=== PATIENT | male | born 1975 | race African-American/Black ===

== ENCOUNTER 2016-08-05 09:11 | Emergency (ER) | payer SELFPAY | END 2016-08-05 11:17 | disposition home or self-care (01) | LOC: D.ER 09:11 | DX: J45.901 Unspecified asthma with (acute) exacerbation (principal); F17.200 Nicotine dependence, unspecified, uncomplicated ==

== ENCOUNTER 2016-09-27 08:54 | Emergency (ER) | payer SELFPAY | END 2016-09-27 11:25 | disposition home or self-care (01) | LOC: D.ER 08:54 | DX: J45.901 Unspecified asthma with (acute) exacerbation (principal); F17.200 Nicotine dependence, unspecified, uncomplicated ==

== ENCOUNTER 2016-11-11 07:19 | Emergency (ER) | payer SELFPAY | END 2016-11-11 09:50 | disposition home or self-care (01) | LOC: D.ER 07:19 | DX: J45.901 Unspecified asthma with (acute) exacerbation (principal); F17.200 Nicotine dependence, unspecified, uncomplicated ==

== ENCOUNTER 2017-01-29 13:03 | Emergency (ER) | payer OTHER | END 2017-01-29 14:00 | disposition home or self-care (01) | LOC: D.ER 13:03 | DX: J45.909 Unspecified asthma, uncomplicated (principal); F17.200 Nicotine dependence, unspecified, uncomplicated ==

== ENCOUNTER 2017-02-20 11:21 | Emergency (ER) | payer OTHER | END 2017-02-20 15:37 | disposition home or self-care (01) | LOC: D.ER 11:21 | DX: M25.562 Pain in left knee (principal); F17.200 Nicotine dependence, unspecified, uncomplicated ==

== ENCOUNTER 2017-06-04 14:15 | Emergency (ER) | payer SELFPAY | END 2017-06-04 15:36 | disposition home or self-care (01) | LOC: D.ER 14:15 | DX: J45.909 Unspecified asthma, uncomplicated (principal); J06.9 Acute upper respiratory infection, unspecified; F17.200 Nicotine dependence, unspecified, uncomplicated ==

== ENCOUNTER 2017-10-29 09:28 | Emergency (ER) | payer SELFPAY ==
[~2017-10-29] VITALS: Ht 175.3 cm; Wt 110.9 kg
[2017-10-29 09:32] VITALS: Ht 175.3 cm; Wt 110.9 kg
[2017-10-29] MEDS ORDERED: VENTOLIN HFA18 GM INH (09:35)
[2017-10-29] MEDS ORDERED: ALBUTEROL0.63 MG/3 INH (09:36)
[2017-10-29] MEDS ORDERED: PROAIR HFA8.5 GM INH (10:58)
[2017-10-29] MEDS ORDERED: ALBUTEROL1.25 MG/3 INH (10:58)
[2017-10-29 11:07] VITALS: BP 128/074
== END 2017-10-29 11:09 | disposition home or self-care (01) ==
LOC: D.ER 09:28
DX: Z76.0 Encounter for issue of repeat prescription (principal); J45.901 Unspecified asthma with (acute) exacerbation; F17.200 Nicotine dependence, unspecified, uncomplicated

== ENCOUNTER 2018-01-28 10:21 | Emergency (ER) | payer SELFPAY ==
[~2018-01-28] VITALS: Ht 175.3 cm; Wt 106.6 kg
[~2018-01-28 10:21] MED LIST: ALBUTEROL0.63 MG/3 INH; ALBUTEROL1.25 MG/3 INH; PROAIR HFA8.5 GM INH; VENTOLIN HFA18 GM INH
[2018-01-28 10:35] VITALS: Ht 175.3 cm; Wt 106.6 kg
[2018-01-28] MEDS ORDERED: VENTOLIN HFA18 GM INH (10:50)
[2018-01-28 11:21] VITALS: BP 148/72
== END 2018-01-28 11:21 | disposition home or self-care (01) ==
LOC: D.ER 10:21
DX: J45.909 Unspecified asthma, uncomplicated (principal); Z76.0 Encounter for issue of repeat prescription; F17.200 Nicotine dependence, unspecified, uncomplicated

== ENCOUNTER 2018-03-04 08:49 | Emergency (ER) | payer SELFPAY | END 2018-03-04 09:24 | disposition home or self-care (01) | LOC: D.ER 08:49 | DX: J45.20 Mild intermittent asthma, uncomplicated (principal); F17.200 Nicotine dependence, unspecified, uncomplicated ==

== ENCOUNTER 2018-05-17 07:47 | Emergency (ER) | payer BC ==
[~2018-05-17] VITALS: Ht 175.3 cm; Wt 100.5 kg
[~2018-05-17 07:47] MED LIST changes: +ALBUTEROL SULF8.5 GM INH
[2018-05-17 08:02] VITALS: Ht 175.3 cm; Wt 100.5 kg
[2018-05-17] MEDS ORDERED: ALBUTEROL SULF8.5 GM INH (08:20)
[2018-05-17] MEDS ORDERED: ZITHROMAX500 MG PO (08:24)
[2018-05-17] MEDS ORDERED: MEDROL DOSE PACK4 MG PO (08:24)
[2018-05-17 09:28] VITALS: BP 142/80
== END 2018-05-17 09:27 | disposition home or self-care (01) ==
LOC: D.ER 07:47
DX: J20.9 Acute bronchitis, unspecified (principal); J45.901 Unspecified asthma with (acute) exacerbation; F17.200 Nicotine dependence, unspecified, uncomplicated

== ENCOUNTER 2018-07-23 07:48 | Emergency (ER) | payer BC ==
[~2018-07-23] VITALS: Ht 175.3 cm; Wt 100.0 kg
[~2018-07-23 07:48] MED LIST changes: +MEDROL DOSE PACK4 MG PO; +ZITHROMAX500 MG PO
[2018-07-23 07:51] VITALS: Ht 175.3 cm; Wt 100.0 kg
[2018-07-23] MEDS ORDERED: ALBUTEROL SULF8.5 GM INH (08:10)
[2018-07-23] MEDS ORDERED: ALBUTEROL2.5 MG/3 M INH (08:10)
[2018-07-23 08:29] VITALS: BP 131/97
== END 2018-07-23 08:23 | disposition home or self-care (01) ==
LOC: D.ER 07:48
DX: J45.909 Unspecified asthma, uncomplicated (principal)

== ENCOUNTER 2020-07-07 05:15 | Emergency (ER) | payer SELFPAY ==
[~2020-07-07] VITALS: Ht 175.3 cm; Wt 113.6 kg
[~2020-07-07 05:15] MED LIST changes: +ALBUTEROL2.5 MG/3 M INH
[2020-07-07 05:23] VITALS: BP 164/95; Ht 175.3 cm; Wt 113.6 kg
[2020-07-07] MEDS ORDERED: STERAPRED DS 1010 MG PO (05:32)
[2020-07-07] MEDS ORDERED: IPRAT-ALBUT 0.5-3 ML UPD (05:57)
[2020-07-07 07:01] LABS: BASOPHILS 0.8 % (0-2); EOSINOPHILS 0 % (0-7); HEMATOCRIT 46.9 % (42.0-54.0); IMMATURE GRANULOCYTES 0.2 % (0-5); LYMPHOCYTE ABS# 2.43 10x3/uL (1.32-3.57); LYMPHOCYTES 41.2 % (15-50); MCH 27.2 pg (26.0-34.0); MCV 85.1 fL (80.0-100.0); MEAN PLATELET VOLUME 11.4 fL (7.4-10.4); MONOCYTES 7.1 % (2-11); NEUTROPHIL ABS# 2.99 10x3/uL (1.78-5.38); NEUTROPHILS 50.7 % (40-80); PLATELET COUNT 162 10x3/uL (130-400); RBC 5.51 10x6/uL (4.20-6.10); RDW 14.1 % (11.5-14.5); WBC 5.9 10x3/uL (4.8-10.8)
[2020-07-07 07:07] LABS: CALC OSMOLALITY 279 mosm/kg (275-300); CALCIUM 9.1 mg/dL (8.5-10.1); CARBON DIOXIDE 28.3 mmol/L (21.0-32.0); CHLORIDE - SERUM 103 mmol/L (98-107); CREATININE - SERUM 1.1 mg/dL (0.6-1.3); GLUCOSE 92 mg/dL (74-106); POTASSIUM - SERUM 3.6 mmol/L (3.5-5.1); SODIUM 141 mmol/L (136-145); UREA NITROGEN 11 mg/dL (7-18); eGFR NON AFRICAN AMERICAN 76 mL/min (90-120)
[2020-07-07 07:12] LABS: ALKALINE PHOSPHATASE 116 U/L (30-120); ALT (SGPT) 26 U/L (10-68); BILIRUBIN - TOTAL 0.51 mg/dL (0.2-1.3); PROTEIN - SERUM 7.3 g/dL (6.4-8.2)
[2020-07-07 07:14] LABS: TROPONIN-I < 0.017 ng/mL (0.000-0.060)
== END 2020-07-07 07:48 | disposition home or self-care (01) ==
LOC: D.ER 05:15
PROVIDERS: Family Medicine
DX: J45.901 Unspecified asthma with (acute) exacerbation (principal); Z72.0 Tobacco use; R06.02 Shortness of breath

== ENCOUNTER 2020-07-24 06:30 | Emergency (ER) | payer SELFPAY ==
[~2020-07-24] VITALS: Ht 175.3 cm; Wt 111.4 kg
[~2020-07-24 06:30] MED LIST changes: +IPRAT-ALBUT 0.5-3 ML UPD; +STERAPRED DS 1010 MG PO
[2020-07-24 06:35] VITALS: Ht 175.3 cm; Wt 111.4 kg
[2020-07-24] MEDS ORDERED: PREDNISONE20 MG PO (06:54)
[2020-07-24 08:07] VITALS: BP 93/54
== END 2020-07-24 08:07 | disposition home or self-care (01) ==
LOC: D.ER 06:30
DX: J45.901 Unspecified asthma with (acute) exacerbation (principal); R06.02 Shortness of breath; Z72.0 Tobacco use

== ENCOUNTER 2020-09-28 17:40 | Observation (INO) | payer SELFPAY ==
[~2020-09-28] VITALS: Ht 175.3 cm; Wt 118.2 kg
[~2020-09-28 17:40] MED LIST changes: +PREDNISONE20 MG PO
[2020-09-28 18:00] VITALS: Ht 175.3 cm; Wt 118.2 kg
--- NOTE | 2020-09-28 18:15 | NUR ---
PLACED ON 2L OXYGEN NC D/T SATS IN LOW 90S. RESPIRATORY IN ROOM NOW.
--- NOTE | 2020-09-28 18:55 | NUR ---
PT REPORTS HE HAS HAD NO RELIEF WITH NEBULIZER TREATMENT
--- NOTE | 2020-09-28 19:00 | NUR ---
PT REPORT TO ZULEMA SILVESTRE
[2020-09-28 19:25] LABS: BASOPHILS 0.7 % (0-2); EOSINOPHILS 0.8 % (0-7); HEMATOCRIT 46.2 % (42.0-54.0); LYMPHOCYTES 24.5 % (15-50); MCH 27.6 pg (26.0-34.0); MCHC 32.5 g/dL (31.0-37.0); MCV 84.7 fL (80.0-100.0); MEAN PLATELET VOLUME 7.7 fL (7.4-10.4); MONOCYTES 5.9 % (2-11); NEUTROPHILS 68.1 % (40-80); PLATELET COUNT 152 10x3/uL (130-400); RBC 5.45 10x6/uL (4.20-6.10); RDW 16.3 % (11.5-14.5); WBC 7.6 10x3/uL (4.8-10.8)
[2020-09-28 19:34] LABS: CALC OSMOLALITY 284 mosm/kg (275-300); CALCIUM 9.2 mg/dL (8.5-10.1); CHLORIDE - SERUM 105 mmol/L (98-107); GLUCOSE 98 mg/dL (74-106); POTASSIUM - SERUM 3.8 mmol/L (3.5-5.1); SODIUM 142 mmol/L (136-145); UREA NITROGEN 17 mg/dL (7-18); eGFR NON AFRICAN AMERICAN 85 mL/min (90-120)
[2020-09-28 19:44] LABS: ALKALINE PHOSPHATASE 87 U/L (30-120); ALT (SGPT) 34 U/L (10-68); BILIRUBIN - TOTAL 0.69 mg/dL (0.2-1.3); MAGNESIUM - SERUM 2.1 mg/dL (1.8-2.4); PROTEIN - SERUM 7.4 g/dL (6.4-8.2)
[2020-09-28 19:51] LABS: TROPONIN-I < 0.017 ng/mL (0.000-0.060)
[2020-09-28] MEDS ORDERED: PREDNISONE50 MG PO (21:21)
[2020-09-28] MEDS ORDERED: SPIRIVA18 MCG INH (21:28)
--- NOTE | 2020-09-28 23:15 | NUR ---
OMAR MERCEDES APRN CONTACTED ABOUT ORDER CLARIFICATION. DECADRON AND ROCEPHIN GIVEN PER ORDER AND DOCUMENTED. ORDER D/C DURING INFUSION OF ROCEPHIN. ROCEPHIN INFUISION STOPPED AND DISCONNECTED FROM PT. JESSICA NELSON STATED TO SKIP ONE TIME DOSE OF SOLUMEDROL AND START NEXT DOSE ON Q8H ORDER AND TO CONTACT HIM SHOULD PT BECOME DISTRESSED. NO FURTHER ORDERS GIVEN AT THIS TIME. VITAL SIGNS STABLE, NO ACUTE DISTRESS NOTED, BED IN LOWEST POSITION, CALL LIGHT WITHIN REACH
[2020-09-29 00:03] VITALS: BP 130/76
--- NOTE | 2020-09-29 01:15 | NUR ---
pt refused to keep blood pressure on, pt was educated on the importance of watching vitals for monitoring throughout the night, pt refused still. will continue to monitor. bed low position, call light in reach.
[2020-09-29 02:00] LABS: CKMB 5.6 U/L (0.0-3.6)
[2020-09-29 02:01] LABS: CREATINE KINASE 846 UL (21-232); TROPONIN-I < 0.017 ng/mL (0.000-0.060)
--- NOTE | 2020-09-29 03:30 | NUR ---
pt asleep, rise and fall of chest noted, no needs at this time, call light in place. will cont' to monitor./
--- NOTE | 2020-09-29 05:12 | NUR ---
pt wanted juice with medication this morning. meds given per emar, this nurse tried to put bp cuff on again, pt refused at this time. will continue to monitor. ambulated to bathroom, no pain at this time. call light in place, bed low position,
--- NOTE | 2020-09-29 06:32 | NUR ---
pt lying in bed eyes closed, rise and fall of chest noted, no needs at this time. vitals stable at this time. bed low position,call light in reach.
[2020-09-29 06:55] LABS: BASOPHILS 0.3 % (0-2); EOSINOPHILS 0 % (0-7); HEMOGLOBIN 15.4 g/dL (13.5-17.5); LYMPHOCYTES 9.6 % (15-50); MCH 27.4 pg (26.0-34.0); MCHC 32.1 g/dL (31.0-37.0); MCV 85.3 fL (80.0-100.0); MEAN PLATELET VOLUME 7.5 fL (7.4-10.4); MONOCYTES 0.7 % (2-11); NEUTROPHILS 89.4 % (40-80); PLATELET COUNT 156 10x3/uL (130-400); RBC 5.62 10x6/uL (4.20-6.10); RDW 16.2 % (11.5-14.5); WBC 6.8 10x3/uL (4.8-10.8)
[2020-09-29 07:18] LABS: ALBUMIN 3.9 g/dL (3.4-5.0); ALKALINE PHOSPHATASE 94 U/L (30-120); ALT (SGPT) 31 U/L (10-68); BILIRUBIN - TOTAL 0.83 mg/dL (0.2-1.3); CALC OSMOLALITY 276 mosm/kg (275-300); CALCIUM 9.3 mg/dL (8.5-10.1); CARBON DIOXIDE 27.8 mmol/L (21.0-32.0); CHLORIDE - SERUM 102 mmol/L (98-107); CREATINE KINASE 770 UL (21-232); CREATININE - SERUM 0.9 mg/dL (0.6-1.3); GLUCOSE 149 mg/dL (74-106); PHOSPHOROUS 2.7 mg/dL (2.5-4.9); POTASSIUM - SERUM 4.8 mmol/L (3.5-5.1); PROTEIN - SERUM 7.7 g/dL (6.4-8.2); SODIUM 137 mmol/L (136-145); TROPONIN-I < 0.017 ng/mL (0.000-0.060); UREA NITROGEN 13 mg/dL (7-18); eGFR NON AFRICAN AMERICAN > 90 mL/min (90-120)
[2020-09-29 11:34] VITALS: BP 138/56
[2020-09-29 13:24] LABS: CKMB 6.4 U/L (0.0-3.6); CREATINE KINASE 741 UL (21-232)
[2020-09-29 13:26] LABS: TROPONIN-I < 0.017 ng/mL (0.000-0.060)
[2020-09-29] MEDS ORDERED: PREDNISONE10 MG PO (13:41)
[2020-09-29] MEDS ORDERED: SINGULAIR10 MG PO (13:42)
[2020-09-29] MEDS ORDERED: FLUTICASONE PRO16 GM NASAL (13:42)
[2020-09-29] MEDS ORDERED: TESSALON PERLE100 MG PO (13:42)
[2020-09-29] MEDS ORDERED: MUCINEX600 MG PO (13:42)
[2020-09-29] MEDS ORDERED: VIBRAMYCIN 100100 MG PO (13:43)
[2020-09-29] MEDS ORDERED: DULERA 200 MCG8.8 GM INH (13:44)
== END 2020-09-29 14:22 | disposition home or self-care (01) ==
LOC: D.ER 17:40 → D.EDHOLD 22:45 → OBSVTIME 22:49 → D.EDHOLD 09-29 14:22
PROVIDERS: Emergency Medicine; Family Medicine; ADMIT Family Medicine; ATTEND Family Medicine
DX: J45.901 Unspecified asthma with (acute) exacerbation (principal); R07.89 Other chest pain; Z72.0 Tobacco use; K21.9 Gastro-esophageal reflux disease without esophagitis; E66.9 Obesity, unspecified; Z68.38 Body mass index [BMI] 38.0-38.9, adult